=== PATIENT | male | born 1950 | race African-American/Black ===

== ENCOUNTER 2020-02-09 11:26 | Emergency (ER) | payer MEDICARE, BC ==
[~2020-02-09] VITALS: Ht 172.7 cm; Wt 89.0 kg
[2020-02-09 12:13] LABS: BASOPHILS % 1.1 % (0.0-2.0); EOSINOPHILS % 1.1 % (0.0-5.0); HEMATOCRIT. 45.2 % (42.0-52.0); HEMOGLOBIN. 15.1 g/dL (14.0-18.0); LYMPHOCYTES % 30.3 % (20.0-50.0); MEAN CORPUSCULAR HEMOGLOBIN 29.2 pg (28.0-32.0); MEAN PLATELET VOLUME 8.6 fl (7.4-10.4); NEUTROPHILS % 57.5 % (40.0-76.0); PLATELET 353 x1000/uL (130-400); RED CELL DISTRIBUTION WIDTH 15.7 % (11.6-14.6)
[2020-02-09 12:21] LABS: CHLORIDE 106 mEq/L (98-107)
[2020-02-09 15:27] VITALS: BP 158/91
== END 2020-02-09 15:55 | disposition home or self-care (01) ==
LOC: ER 11:26
DX: R07.89 Other chest pain (principal); M54.12 Radiculopathy, cervical region; I10 Essential (primary) hypertension; Z98.890 Other specified postprocedural states
CPT/HCPCS: 36415; 71045; 80053; 83880; 84484; 85025; 93005; 99285

== ENCOUNTER 2021-10-05 15:23 | Emergency (ER) | payer SELFPAY ==
[~2021-10-05] VITALS: Ht 172.7 cm; Wt 89.0 kg
[2021-10-05 19:21] LABS: *AMPHETAMINES SCREEN URINE NEGATIVE (NEGATIVE); *BARBITURATES SCREEN URINE NEGATIVE (NEGATIVE); *BENZODIAZEPINES SCREEN URINE NEGATIVE (NEGATIVE); *COCAINE SCREEN URINE NEGATIVE (NEGATIVE); CANNABINOID URINE SCREEN NEGATIVE (NEGATIVE); METHADONE URINE SCREEN NEGATIVE (NEGATIVE); OPIATES URINE SCREEN NEGATIVE (NEGATIVE); PHENCYCLIDINE URINE SCREEN NEGATIVE (NEGATIVE)
[2021-10-05 20:07] LABS: BASOPHILS % 0.5 % (0.0-2.0); EOSINOPHILS % 1.3 % (0.0-5.0); HEMATOCRIT. 45.8 % (42.0-52.0); LYMPHOCYTES % 30.9 % (20.0-50.0); MEAN CORPUSCULAR HEMOGLOBIN 28.9 pg (28.0-32.0); MEAN CORPUSCULAR VOLUME 88.3 fL (80.0-94.0); MEAN PLATELET VOLUME 7.9 fl (7.4-10.4); MONOCYTES % 13.2 % (2.0-8.0); NEUTROPHILS % 54.1 % (40.0-76.0); PLATELET 282 x1000/uL (130-400); RED BLOOD CELL COUNT 5.18 mill/uL (4.7-6.1); RED CELL DISTRIBUTION WIDTH 16.1 % (11.6-14.6)
[2021-10-05 20:15] LABS: CHLORIDE 108 mEq/L (98-107)
[2021-10-05 20:22] LABS: ETHANOL BLOOD < 10 mg/dL
[2021-10-05] MEDS ORDERED: MAGNESIUM/ALUMINUM HYDROXIDE/SIMETHICONE 30ML UDC PO ONE (20:30)
[2021-10-05] MEDS ORDERED: MORPHINE SULFATE 4 MG/ML CPJ (NOT FOR IM USE) IV ONE (20:30)
[2021-10-05] MEDS ORDERED: VISCOUS LIDOCAINE 2% 15 ML UDC MM ONE (20:30)
[2021-10-05] MEDS ORDERED: ONDANSETRON HCL 4MG/2ML INJ IV ONE (20:30)
[2021-10-05] MEDS ORDERED: FAMOTIDINE 20MG/2ML VIAL IV ONE (20:30)
[2021-10-05 21:43] LABS: PROTHROMBIN TIME 10.9 sec (9.6-11.0)
[2021-10-05] MEDS ORDERED: FAMO40TA70 MT (21:57)
[2021-10-05 22:24] VITALS: BP 161/70
== END 2021-10-05 22:30 | disposition home or self-care (01) ==
LOC: ER 15:23
DX: R07.9 Chest pain, unspecified (principal); I10 Essential (primary) hypertension; Z87.891 Personal history of nicotine dependence
CPT/HCPCS: 36415; 71045; 80053; 80305; 80320; 83690; 83880; 84484; 85025; 85610; 86850; 86900; 86901; 93005; 96374; 96375; 99285; J2270; J2405; J3490; G0480